=== PATIENT | male | born 1955 | race Caucasian/White ===

== ENCOUNTER → 2016-09-23 | Day surgery (SDC) | payer BC ==
[~2016-09-23] VITALS: Ht 180.3 cm; Wt 90.7 kg
== END | disposition home or self-care (01) ==
LOC: SDC 09-20 08:10
DX: M75.42 Impingement syndrome of left shoulder (principal); M19.012 Primary osteoarthritis, left shoulder; K21.9 Gastro-esophageal reflux disease without esophagitis; M19.90 Unspecified osteoarthritis, unspecified site; Z87.891 Personal history of nicotine dependence
CPT/HCPCS: J0171; J1885; J2704